=== PATIENT | male | born 1975 | race Caucasian/White ===

== ENCOUNTER 2020-01-28 15:41 | Outpatient (CLI) | payer OTHER, SELFPAY ==
--- NOTE | 2020-01-28 15:52 | XRR_ITS ---
PROCEDURE INFORMATION: Exam: XR Right Knee Exam date and time: 01/28/2020 3:54 PM Age: 44 years old Clinical indication: Pain; Knee; Bilateral; Prior surgery; Additional info: Bilat knee pain TECHNIQUE: Imaging protocol: XR Right knee. Views: 3 views. COMPARISON: No relevant prior studies available. FINDINGS: Bones/joints: Unremarkable Soft tissues: Normal. XR/XR knee RT 4V [id number] IMPRESSION: No acute findings.
--- NOTE | 2020-01-28 15:52 | XRR_ITS ---
PROCEDURE INFORMATION: Exam: XR Left Knee Exam date and time: 01/28/2020 3:54 PM Age: 44 years old Clinical indication: Pain; Knee; Bilateral; Additional info: Bilat knee pain TECHNIQUE: Imaging protocol: XR Left knee. Views: 4 or more views. COMPARISON: No relevant prior studies available. FINDINGS: Bones/joints: Negative for acute bony abnormality Soft tissues: Normal. XR/XR knee LT 4V [id number] IMPRESSION: No acute findings.
== END 2020-01-28 15:42 | disposition home or self-care (01) ==
LOC: RADWPI 15:44
PROVIDERS: PCP Nurse Practitioner Family; Visit Provider Nurse Practitioner Family
DX: M25.561 Pain in right knee (principal); M25.562 Pain in left knee
CPT/HCPCS: 73564

== ENCOUNTER 2020-02-03 13:27 | Outpatient (CLI) | payer OTHER, SELFPAY ==
--- NOTE | 2020-02-03 | XR_ITS ---
WS: [id number] Chest 2 views, 02/03/2020 Clinical Data: REGULATED PROGRAM MONITORING Comparison: PA and lateral chest, 01/28/2019. Findings: No nodules, masses or effusions are seen. The heart is normal. The pulmonary vascularity is not increased. No pneumonia or pneumothorax is seen. The aortic arch and descending aorta are tortuo us. XR/XR chest 2V* [id number] Impression: Atherosclerosis.
== END 2020-02-03 13:28 | disposition home or self-care (01) ==
LOC: RADWPI 13:27
PROVIDERS: Family Provider Nurse Practitioner Family; PCP Nurse Practitioner Family; Visit Provider Preventive Medicine Occupational Medicine
DX: Z13.6 Encounter for screening for cardiovascular disorders (principal); I70.90 Unspecified atherosclerosis
CPT/HCPCS: 71046

== ENCOUNTER 2020-04-04 09:29 | Outpatient (CLI) | payer OTHER, SELFPAY ==
--- NOTE | 2020-04-04 09:33 | MR_ITS ---
WS: [id number] MRI RIGHT KNEE NONCONTRAST TECHNIQUE: Axial PD, coronal PD fat sat, coronal PD, sagittal PD, and sagittal PD fat-sat images obta ined. CLINICAL INFORMATION: BILAT KNEE PAIN COMPARISON: None. FINDINGS: Distal quadriceps and patella tendons are intact. Hypertrophic patella. Normal ACL and PCL. Soft tiss ue edema. Horizontal tear involving the posterior horn medial meniscus extends to the articular surfa ce and free edge of the meniscus. Chronic thinning of the medial meniscus. Moderate chondromalacia patella. Normal medial and lateral patellar retinaculum. Medial and lateral c ollateral ligaments are intact. MR/MR knee RT wo con* [id number] IMPRESSION: 1. Normal ACL and PCL. 2. Horizontal tear with chronic intrasubstance signal abnormality involving th e medial meniscus extending to the free edge of the meniscus. This is more prom inent in the posterior horn. 3. Moderate chondromalacia patella. No subchondral edema. 4. Moderate degenerative narrowing medial joint compartment with chronic menis luz thinning.
== END 2020-04-04 09:30 | disposition home or self-care (01) ==
PROVIDERS: Family Provider Nurse Practitioner Family; PCP Nurse Practitioner Family; Visit Provider Nurse Practitioner Family
DX: M25.562 Pain in left knee (principal); S83.241A Other tear of medial meniscus, current injury, right knee, initial encounter; X58.XXXA Exposure to other specified factors, initial encounter; M22.41 Chondromalacia patellae, right knee
CPT/HCPCS: 73721